=== PATIENT | female | born 1980 | race African-American/Black ===

== ENCOUNTER → 2016-09-04 | Outpatient (CLI) | payer OTHER ==
[~2016-09-04] MED LIST: IMODIUM2 MG PO; ZOFRAN8 MG PO
--- NOTE | ~2016-09-04 | CT71 ---
[facility] A Service of [facility] [place] RADIOLOGY TEXT RESULTS PATIENT: ROMERO RUIZ LOCATION: [facility] : 76 UNIT #: [id number] AGE: [address]: Guy Sidhu MD SEX: F ORDER DR: [id number] [facility]. [place], [place] [address] [id number] O MR#: [id number] Acc #: [id number] NAME: ROMERO RUIZ : 1980 SEX: F STUDY DATE/TIME: 09/04/2016 18:54 UNIT: [facility] ROOM: STUDY DESCRIPTION: CT Head Wo Contrast Attending Physician: Guy Sidhu M.D. Ordering Physician: Guy Sidhu M.D. Primary Care Physician: Guy Sidhu M.D. MEDICAL IMAGING REPORT This report is preliminary unless electronic signature is present EXAM CT brain without contrast media HISTORY Malaise, fatigue and syncopal episodes beginning 2 weeks ago. TECHNIQUE Transaxial imaging of the brain was performed without contrast media. Bone and soft tissue windows are reviewed. This CT exam was performed with one or more of the following radiation dose reduction techniques: automatic exposure control, adjustment of mA and/or kV according to patient size, and iterative reconstruction. FINDINGS Ventricular size and configuration is normal. No intra or extraaxial mass lesions, fluid collections or mass effect are seen. No focal areas of low attenuation or intracranial hemorrhage. Paranasal sinuses and mastoid air cells are normal. CONCLUSION Normal noncontrast CT of the brain. Dictated by... Rhett Rothman M.D. THIS IS AN ELECTRONICALLY VERIFIED REPORT Rhett Rothman M.D. at 09/05/2016 5:04 PM John Paul TD: 09/05/2016 08:55 JOB #: [id number] [facility] A Service of [facility] [place] RADIOLOGY TEXT RESULTS PATIENT: ROMERO RUIZ [facility] : 76 UNIT #: [id number] AGE: [address]: Guy Sidhu MD SEX: F ORDER DR: MEDICAL IMAGING REPORT Page 1 of 1 COPY
== END | disposition home or self-care (01) ==
LOC: CCAT 18:42
DX: R55 Syncope and collapse (principal); R53.83 Other fatigue
CPT/HCPCS: 70450